=== PATIENT | male | born 1960 | race Caucasian/White ===

== ENCOUNTER → 2021-01-12 12:43 | Outpatient (CLI) | payer OTHER, SELFPAY ==
--- NOTE | 2021-01-12 12:58 | CA_ITS ---
APPROVED REPORT EXAM: Comprehensive 2D, Doppler, and color-flow Echocardiogram [employer] Supervisor: Alida Madrid, SELINA, RVS Ht: 5 ft 7 in Wt: 172lbs BSA: 1.90 BP: 120/80 mmHg Indications: CAD- Ef check for VA 2D Dimensions IVSd 0.91 cm LVEF (Visual) 81.90 % PWd 0.86 cm LVDd 4.85 cm LVDs 2.39 cm Left Atrium 3.05 cm LVOT 1.83 cm (M/F) 1.5-2.5 M-Mode Dimensions LA Diam 3.96 cm (1.9-4.0) Ao Diam 3.27 cm (2.0-3.7) EPSs 0.85 cm TAPSE 3.05 (<1.7) LV Diastology E Decel Time 243.00 (160-240 msec) E/A Ratio 1.02 MED E' 9.60 (< 7 cm/sec) MED A' 12.30 cm/s E'/MED E' Ratio 7.46 (>14) LAT E' 9.00 (<10 cm/sec) LAT A' 12.10 cm/s E/LAT E' Ratio 7.96 (>14) Pulm Vein s 44.00 cm/sec Pulm Vein d 33.00 cm/sec Ar-A Duration 120.00 msec Aortic Valve LVOT Max 127.00 (70-110 cm/s) LVOT VTI 27.88 cm AoV Peak Nilesh. 165.00 (50-130 cm/s) AO Peak GR. 10.80 mmHg AO Mean GR. 5.40 (<5 mmHg) AO VTI 31.25 (18-25 cm) [place] (VTI) 2.35 (2.5-4.5 cm2) Mitral Valve MV A Velocity 70.00 (40-130 cm/s) E/A Ratio 1.02 MV Decel. Time 243.00 (160-240 ms) Pulmonary Valve PV Peak Velocity 102.00 (50-150 cm/s) Tricuspid Valve TR P. Velocity 188.00 cm/s RAP Estimate 10.00 mmHg RVSP 24.10 mmHg Left Ventricle Left atrium is normal size, left ventricle is normal size, there is no concentric left ventricular hypertrophy, visually estimated ejection fraction 55% with no regional wall motion abnormality, diastolic parameters are within normal range. Right Ventricle Right atrium and right ventricle are normal size and contractility. Aortic Valve Aortic valve is minimally thickened and fibrosed, there is no aortic stenosis or aortic insufficiency. Mitral Valve Mitral valve is grossly normal, there is trace mitral regurgitation. Tricuspid Valve Tricuspid valve grossly normal, there is trace tricuspid regurgitation tricuspid regurgitation jet velocity is inadequate for calculation of the right ventricular systolic pressure. Pulmonic Valve Pulmonic valve is poorly visualized. Great Vessels Aortic root is normal size. Inferior vena cava is normal size with normal inspiratory collapse. Pericardium No significant pericardial effusion noted. Conclusion 1. Normal left ventricular size, preserved left ventricular systolic function, visually estimated ejection fraction 55% with no regional wall motion abnormality diastolic parameters are within normal limits. 2. Trace mitral and tricuspid regurgitation. 3. No significant pericardial effusion noted. Electronically signed by : Matthew Tripathi MD 01/13/2021 13:39:26
== END ==
PROVIDERS: PCP Family Medicine; Visit Provider Chiropractor
DX: I25.10 Atherosclerotic heart disease of native coronary artery without angina pectoris (principal)
CPT/HCPCS: 93306